=== PATIENT | female | born 1950 | race Caucasian/White ===

== ENCOUNTER 2022-08-16 10:15 | Emergency (ER) | payer OTHER, MEDICAID ==
[~2022-08-16] VITALS: Ht 165.1 cm; Wt 60.0 kg
[~2022-08-16 10:15] MED LIST: ASPI-1497 PO; ATOR20TA65 PO; LEVO112T7 PO; SERT25TA74 PO
[2022-08-16] MEDS ORDERED: LIDOCAINE HCL/EPINEPHRINE 1%-EPI 1:100,000 20 ML VIAL INFIL ONE (10:45)
[2022-08-16 10:59] LABS: BASOPHILS % 0.4 % (0.0-2.0); EOSINOPHILS % 1.2 % (0.0-5.0); HEMATOCRIT. 33.6 % (36.0-48.0); HEMOGLOBIN. 11.1 g/dL (12.0-16.0); LYMPHOCYTES % 30.3 % (20.0-50.0); MEAN CORPUSCULAR HEMOGLOBIN 26.1 pg (28.0-32.0); MEAN CORPUSCULAR VOLUME 79.1 fL (81.0-99.0); MEAN PLATELET VOLUME 8.2 fl (7.4-10.4); MONOCYTES % 9.8 % (2.0-8.0); NEUTROPHILS % 58.3 % (40.0-76.0); PLATELET 247 x1000/uL (130-400); RED BLOOD CELL COUNT 4.25 mill/uL (4.2-5.4); RED CELL DISTRIBUTION WIDTH 15.2 % (11.6-14.6)
[2022-08-16 11:08] LABS: CHLORIDE 106 mEq/L (98-107)
[2022-08-16] MEDS ORDERED: LIDOCAINE HCL/EPINEPHRINE 1%-EPI 1:100,000 10 ML VIAL INFIL SCH (11:15)
[2022-08-16] MEDS ORDERED: LIDOCAINE HCL/EPINEPHRINE 1%-EPI 1:100,000 10 ML VIAL IJ SCH (11:15)
[2022-08-16] MEDS ORDERED: ONDANSETRON HCL 4MG/2ML INJ IV ONE (12:30)
[2022-08-16] MEDS ORDERED: SODIUM CHLORIDE 0.9% 1,000 ML IV ONE (12:30)
[2022-08-16] MEDS ORDERED: PROPOFOL 200MG/20ML VIAL IV ONE (12:30)
[2022-08-16 12:34] LABS: INR 1.1; PROTHROMBIN TIME 11.4 sec (9.6-11.0)
[2022-08-16 13:20] VITALS: BP 170/75
[2022-08-16] MEDS ORDERED: IBUP-2028 MT (13:54)
[2022-08-16] MEDS ORDERED: HYDR-4001 MT (13:54)
[2022-08-16] MEDS ORDERED: ONDA4TAB50 MT (17:34)
== END 2022-08-16 14:49 | disposition home or self-care (01) ==
LOC: ER 10:30
DX: S52.502A Unspecified fracture of the lower end of left radius, initial encounter for closed fracture (principal); S52.501A Unspecified fracture of the lower end of right radius, initial encounter for closed fracture; S52.612A Displaced fracture of left ulna styloid process, initial encounter for closed fracture; E78.00 Pure hypercholesterolemia, unspecified; R51.9 Headache, unspecified; I10 Essential (primary) hypertension; Z86.39 Personal history of other endocrine, nutritional and metabolic disease; Z98.890 Other specified postprocedural states; W01.0XXA Fall on same level from slipping, tripping and stumbling without subsequent striking against object, initial encounter; Y93.89 Activity, other specified; Y92.89 Other specified places as the place of occurrence of the external cause; Y99.8 Other external cause status
CPT/HCPCS: 25605; 36415; 70450; 73110; 80053; 85025; 85610; 93005; 96360; 99152; 99285; J2405; J2704; J3490; J7030

== ENCOUNTER 2022-08-16 15:16 | Emergency (ER) | payer OTHER, MEDICAID ==
[~2022-08-16] VITALS: Ht 160 cm; Wt 68.0 kg
[~2022-08-16 15:16] MED LIST changes: +HYDR-4001 MT; +IBUP-2028 MT
[2022-08-16] MEDS ORDERED: SODIUM CHLORIDE 0.9% 1,000 ML IV ONE (15:30)
[2022-08-16 16:12] LABS: BASOPHILS % 0.3 % (0.0-2.0); EOSINOPHILS % 0.2 % (0.0-5.0); HEMATOCRIT. 34.1 % (36.0-48.0); HEMOGLOBIN. 11.2 g/dL (12.0-16.0); MONOCYTES % 8.7 % (2.0-8.0); NEUTROPHILS % 78.8 % (40.0-76.0); PLATELET 228 x1000/uL (130-400); RED BLOOD CELL COUNT 4.32 mill/uL (4.2-5.4); RED CELL DISTRIBUTION WIDTH 15.2 % (11.6-14.6)
[2022-08-16 16:15] LABS: CHLORIDE 104 mEq/L (98-107)
[2022-08-16 16:22] LABS: ETHANOL BLOOD < 10 mg/dL
[2022-08-16] MEDS ORDERED: ONDANSETRON HCL 4MG/2ML INJ IV ONE (17:15)
[2022-08-16] MEDS ORDERED: ONDA4TAB50 MT (17:34)
[2022-08-16] MEDS ORDERED: ONDANSETRON 4MG ODT PO ONE (18:15)
[2022-08-16] MEDS ORDERED: MAGNESIUM/ALUMINUM HYDROXIDE/SIMETHICONE 30ML UDC PO ONE (18:15)
[2022-08-16] MEDS ORDERED: HYDROCODONE/ACETAMINOPHEN 5/325MG TABLET PO ONE (19:00)
[2022-08-16 22:54] VITALS: BP 146/78
== END 2022-08-16 23:15 | disposition home or self-care (01) ==
LOC: ER 15:16
DX: R55 Syncope and collapse (principal); F41.9 Anxiety disorder, unspecified; E78.00 Pure hypercholesterolemia, unspecified; I10 Essential (primary) hypertension; E03.9 Hypothyroidism, unspecified; Z79.899 Other long term (current) drug therapy
CPT/HCPCS: 36415; 71045; 80053; 80320; 82962; 85025; 96361; 96374; 99285; J2405; J7030; Q0162; G0480